=== PATIENT | male | born 2000 | race Caucasian/White ===

== ENCOUNTER 2021-09-08 14:50 | Emergency (ER) | payer SELFPAY ==
--- NOTE | 2021-09-08 16:45 | ER ---
Nurse's Notes [facility] Name: Sukh Ceja Age: 21 yrs Sex: Male : 2000 Arrival Date: 09/08/2021 Time: 14:51 Bed 6 Private MD: Diagnosis: Influenza Presentation: 09/08 14:54 Chief complaint: Patient states: i started feeling a sore throat Sunday afternoon. and tw2 it has gotten worse and i have a cough that has gotten worse. and i have been running fever. i got a covid test and it was negative. +cough and sore. and i feel like i have a sinus problem with drainage. Coronavirus screen: congestion, cough unrelated to allergies, fever, Client presents with at least one sign or symptom that may indicate coronavirus-19. Standard/surgical mask placed on the client. Provider contacted for isolation considerations. Ebola Screen: Patient denies travel to an Ebola-affected area in the 21 days before illness onset. Initial Sepsis Screen: Does the patient meet any 2 criteria? No. Patient's initial sepsis screen is negative. Does the patient have a suspected source of infection? No. Patient's initial sepsis screen is negative. Risk Assessment: Do you want to hurt yourself or someone else? Patient reports no desire to harm self or others. Onset of symptoms was September 08, 2021. 14:54 Method Of Arrival: Ambulatory tw2 14:54 Acuity: KELY 4 tw2 Triage Assessment: 14:56 General: Appears in no apparent distress. slender, well groomed, Behavior is calm, tw2 cooperative, appropriate for age. Pain: Complains of pain in uvula, left aspect of posterior pharynx and right aspect of posterior pharynx. Historical: - Allergies: 14:56 No Known Allergies; tw2 - Home Meds: 14:56 None [Active]; tw2 - PMHx: 14:56 bowel obstruction; tw2 - PSHx: 14:56 colostomy, at 12 yrs; tw2 - Immunization history:: Client reports receiving the 2nd dose of the Covid vaccine. - Social history:: Smoking status: Reported history of juuling and/or vaping. Screenin:07 Abuse screen: Denies threats or abuse. Nutritional screening: No deficits noted. tw2 Tuberculosis screening: No symptoms or risk factors identified. Fall Risk None identified. Assessment: 15:44 General: Appears in no apparent distress. Behavior is calm, cooperative. Pain: villagomez Complains of pain in throat. EENT: Throat is reddened. Vital Signs: 14:54 BP 122 / 84; Pulse 86; Resp 17; Temp 99.5(TE); Pulse Ox 98% on R/A; tw2 14:54 Weight 52.16 kg (R); Height 5 ft. 6 in. (167.64 cm); Pain 4/10; tw2 14:54 Body Mass Index 18.56 (52.16 kg, 167.64 cm) tw2 ED Course: 14:51 Patient arrived in ED. am2 14:51 [facility] 14:51 Mk Zacarias MD is Attending Physician. [facility] 14:56 Triage completed. tw2 14:57 Arm band placed on. tw2 14:58 Marizol Mcdonald, DAYANNA is Primary Nurse. [place] 15:07 Bed in low position. Call light in reach. Adult w/ patient. tw2 15:44 No provider procedures requiring assistance completed. [place] 16:54 Patient did not have IV access during this emergency room visit. villagomez Administered Medications: No medications were administered Medication: 15:44 VIS not applicable for this client. villagomez Outcome: 16:45 Discharge ordered by . [facility] 16:54 Discharged to home ambulatory. 16:54 Condition: good 16:54 Discharge instructions given to patient, Prescriptions given X 1. 16:54 Patient left the ED. villagomez Signatures: Lam Bello PA PA [facility] Caty Busby RN RN tw2 Maria C Lees am2 Marizol Mcdonald RN RN villagomez Corrections: (The following items were deleted from the chart) 14:57 14:56 PMHx: None; tw2 tw2
--- NOTE | 2021-09-08 16:45 | EDPHYS ---
Physician Documentation [facility] Name: Sukh Ceja Age: 21 yrs Sex: Male : 2000 Arrival Date: 09/08/2021 Time: 14:51 Bed 6 Private MD: GLENIS Physician Mk Zacarias HPI: 09/08 15:07 This 21 yrs old Male presents to ER via Ambulatory with complaints of Flu Symptoms. jmm 15:07 The patient or guardian reports cough. Onset: The symptoms/episode began/occurred jmm gradually. Modifying factors: The symptoms are alleviated by nothing. the symptoms are aggravated by nothing. Associated signs and symptoms: Pertinent positives: fever, sore throat. It is unknown whether or not the patient has had similar symptoms in the past. Historical: - Allergies: 14:56 No Known Allergies; tw2 - Home Meds: 14:56 None [Active]; tw2 - PMHx: 14:56 bowel obstruction; tw2 - PSHx: 14:56 colostomy, at 12 yrs; tw2 - Immunization history:: Client reports receiving the 2nd dose of the Covid vaccine. - Social history:: Smoking status: Reported history of juuling and/or vaping. ROS: 15:07 Cardiovascular: Negative for chest pain, palpitations, and edema. jmm 15:07 Constitutional: Positive for body aches, chills. 15:07 ENT: Positive for sore throat. 15:07 Respiratory: Positive for cough. 15:07 All other systems are negative. Exam: 15:07 Constitutional: This is a well developed, well nourished patient who is awake, alert, jmm and in no acute distress. Head/Face: atraumatic. Eyes: EOMI, no conjunctival erythema appreciated 15:07 Neck: Trachea midline, Supple Chest/axilla: Normal chest wall appearance and motion. Cardiovascular: Regular rate and rhythm. No edema appreciated Respiratory: Normal respirations, no respiratory distress appreciated Abdomen/GI: Non distended, soft Back: Normal ROM Skin: General appearance color normal MS/ Extremity: Moves all extremities, no obvious deformities appreciated, no edema noted to the lower extremities Neuro: Awake and alert Psych: Behavior is normal, Mood is normal, Patient is cooperative and pleasant 15:07 ENT: Posterior pharynx: erythema, that is moderate. Vital Signs: 14:54 BP 122 / 84; Pulse 86; Resp 17; Temp 99.5(TE); Pulse Ox 98% on R/A; tw2 14:54 Weight 52.16 kg (R); Height 5 ft. 6 in. (167.64 cm); Pain 4/10; tw2 14:54 Body Mass Index 18.56 (52.16 kg, 167.64 cm) tw2 MDM: 15:07 Patient medically screened. [facility] 16:44 Data reviewed: vital signs, nurses notes. Counseling: I had a detailed discussion with [facility] the patient and/or guardian regarding: the historical points, exam findings, and any diagnostic results supporting the discharge/admit diagnosis, lab results, the need for outpatient follow up, to return to the emergency department if symptoms worsen or persist or if there are any questions or concerns that arise at home. 09/08 15:12 Order name: Influenza Screen (a \\T\\ B); Complete Time: 16:15 [facility] 09/08 15:12 Order name: Strep; Complete Time: 16:11 [facility] 09/08 15:12 Order name: SARS-COV-2 RT PCR (Document "Date of Onset" if Symptomatic); Complete Time: [facility] 16:33 09/08 16:12 Order name: Throat Culture EDMS Administered Medications: No medications were administered Disposition Summary: 09/08/21 16:45 Discharge Ordered Location: Home [facility] Condition: Stable [facility] Diagnosis - Influenza [facility] Followup: [facility] - With: Private Physician - When: 2 - 3 days - Reason: Recheck today's complaints, Continuance of care, Re-evaluation by your physician Discharge Instructions: - Influenza, Adult [facility] - Discharge Summary Sheet tw2 Forms: - Medication Reconciliation Form [facility] - Thank You Letter [facility] - Antibiotic Education [facility] - School release form tw2 - Work release form tw2 - Prescription Opioid Use [facility] Prescriptions: - Tamiflu 75 mg Oral Capsule - take 1 tablet by ORAL route every 12 hours for 5 days; 10 tablet; Refills: 0, [facility] Product Selection Permitted Signatures: Dispatcher [employer] EDMS Mk Zacarias MD MD cha Mickail, Joel, PA PA Caty Temple RN RN tw2 Corrections: (The following items were deleted from the chart) 14:57 14:56 PMHx: None; tw2 tw2
[2021-09-08 17:26] VITALS: BP 122/84; TEMP 99.5; O2SAT 98
== END 2021-09-08 16:54 | disposition home or self-care (01) ==
LOC: ER 14:50
DX: J11.1 Influenza due to unidentified influenza virus with other respiratory manifestations (principal); Z20.822 Contact with and (suspected) exposure to COVID-19
CPT/HCPCS: 87070; 87081; 87804; 99282; U0003